=== PATIENT | female | born 1950 | race Caucasian/White ===

== ENCOUNTER 2017-02-25 17:10 | Emergency (ER) | payer SELFPAY ==
[2017-02-25 17:21] VITALS: BP 121/68; PULSE 67; TEMP 98.6; BMI 24.0
[2017-02-25] MEDS ORDERED: LIDOCAINE HCL 1%, 10 MG/ML (20ML VIAL) ONE (18:56)
--- NOTE | 2017-02-25 19:13 | PDOC ---
History of Present Illness - General Chief Complaint: Toothache Stated Complaint: PAIN Time Seen by Provider: 02/25/17 18:25 - History of Present Illness Initial Comments: 02/25/17 19:09 CHIEF COMPLAINT: tooth pain HISTORY OF PRESENT ILLNESS: 66 yo F with hx of HTN and HLD presents to [facility] with L lower tooth pain x 3 days. Patient denies any fever, chills, vomiting, diarrhea. PAST MEDICAL HISTORY: Denies past medical history FAMILY HISTORY: Denies SOCIAL HISTORY: Denies tobacco, alcohol, illicit drug use. SURGICAL HISTORY: Denies ALLERGIES: No known drug allergies REVIEW OF SYSTEMS General/Constitutional: Denies fever or chills. HEENT: L lower tooth pain. Cardiovascular: Denies chest pain or shortness of breath. Respiratory: Denies cough, wheezing, or hemoptysis. Gastrointestinal: Denies nausea, vomiting, diarrhea. Musculoskeletal: Denies joint or muscle swelling or pain. Denies neck or back pain. Skin and breasts: Denies rash. PHYSICAL EXAM General Appearance: Well-appearing, appropriately dressed. No apparent distress , no intoxication. HEENT: Dental caries to L lower molars, no abscess appreciated. EOMI, PERRLA, normal ENT inspection, normal voice, TMs normal, pharynx normal. No conjunctival pallor. No photophobia, scleral icterus. Neck: Supple. Trachea midline. No tenderness, rigidity, carotid bruit, stridor , lymphadenopathy, or thyromegaly. Respiratory/Chest: Lungs CTAB. No shortness of breath, chest tenderness, respiratory distress, accessory muscle use. No crackles, rales, rhonchi, stridor , wheezing, dullness Cardiovascular: RRR. S1, S2. No JVD, murmur, bradycardia, tachycardia. Vascular Pulses: Dorsalis-Pedis (R): 2+, Dorsalis-Pedis (L): 2+ Gastrointestinal/Abdominal: Normal bowel sounds. Abdomen soft, non-distended. No tenderness or rebound tenderness. No organomegaly, pulsatile mass, guarding , hernia, hepatomegaly, splenomegaly. Lymphatic: No adenopathy, tenderness. Musculoskeletal/Extremities: Normal inspection. FROM of all extremities, normal capillary refill. Pelvis Stable. No CVA tenderness. No tenderness to extremities, pedal edema, swelling, erythema or deformity. Integumentary: Appropriate color, dry, warm. No cyanosis, erythema, jaundice or rash Neurologic: judge II-XII intact. Fully oriented, alert. Appropriate mood/affect. Motor strength 5/5. No appreciable EOM palsy, facial droop or sensory deficit. Past History - Past Medical History Allergies/Adverse Reactions: Allergies Allergy/AdvReac Type Severity Reaction Status Date / Time No Known Allergies Allergy Verified 02/25/17 17:21 Home Medications: Ambulatory Orders Clindamycin [Cleocin -] 300 mg PO Q6HPO #28 capsule 02/25/17 COPD: No HTN: Yes Hypercholesterolemia: Yes - Suicide/Smoking/Psychosocial Hx Smoking History: Never smoked Hx Alcohol Use: No Drug/Substance Use Hx: No Substance Use Type: None *Physical Exam - Vital Signs Last Vital Signs Temp Pulse Resp BP Pulse Ox 98.6 F 67 20 121/68 98 02/25/17 17:19 02/25/17 17:19 02/25/17 17:19 02/25/17 17:19 02/25/17 17:19 Medical Decision Making - Medical Decision Making 02/25/17 19:10 66 yo F with hx of HTN and HLD presents [facility] with L lower tooth pain x 3 days. Dental block performed, patient expressed immediate relief. Clindamycin rx sent to pharm. Advised patient to take medication as prescribed and follow up with dentist by the end of the week. Advised patient of signs and symptoms for return to ED. Patient verbalized understanding and agrees to plan. *DC/Admit/Observation/Transfer Diagnosis at time of Disposition: Pain, dental - Discharge Dispostion Disposition: HOME Condition at time of disposition: Stable Admit: No - Prescriptions Prescriptions: Clindamycin [Cleocin -] 300 mg PO Q6HPO #28 capsule - Referrals Referrals: Jeannette Malcolm MD [Primary Care Provider] - - Patient Instructions Printed Discharge Instructions: DI for Dental Pain Additional Instructions: Please take medications as prescribed and follow up with your dentist as soon as possible. of any fever, chills, vomiting, diarrhea, or any new or worsening symptoms, please return to the ER. - Post Discharge Activity
== END 2017-02-25 19:13 | disposition home or self-care (01) ==
LOC: JERFT 17:10
DX: K08.89 Other specified disorders of teeth and supporting structures (principal); K02.9 Dental caries, unspecified
CPT/HCPCS: 99281-25

== ENCOUNTER 2019-03-24 11:20 | Emergency (ER) | payer OTHER ==
[2019-03-24 11:48] VITALS: BP 148/77; PULSE 80; TEMP 98.9; BMI 24.2
--- NOTE | 2019-03-24 11:58 | PDOC ---
History of Present Illness - General Chief Complaint: Urinary Problem Stated Complaint: UTI Time Seen by Provider: 03/24/19 11:58 - History of Present Illness Initial Comments: 03/24/19 13:00 Pt presents to the ED complaining of a one week history of generalized weakness , dysuria and flank pain. Patient has a history of DM, HTN and frequent UTIs in the past. Has been having dysuria for three weeks, which she treated with OTC pyridium until she began to feel increasingly weak. She presented to her PCP office last week, where she was diagnosed with UTI and treated with cipro. She presents today because she still has dysuria and feels weak and nauseated. Past History - Past Medical History Allergies/Adverse Reactions: Allergies Allergy/AdvReac Type Severity Reaction Status Date / Time No Known Allergies Allergy Verified 03/24/19 11:41 Home Medications: Ambulatory Orders Amlodipine Besylate 10 mg PO DAILY 03/24/19 Ciprofloxacin HCl [Cipro] 500 mg PO BID 03/24/19 Glimepiride 1 mg PO DAILY 03/24/19 Lisinopril/Hydrochlorothiazide [Lisinopril-Hctz 10-12.5 mg Tab] 1 each PO DAILY 03/24/19 Metformin HCl [Glucophage] 500 mg PO DAILY 03/24/19 Phenazopyridine HCl [Pyridium] 100 mg PO TID 03/24/19 Simvastatin 40 mg PO DAILY 03/24/19 COPD: No Diabetes: Yes (TYPE II) HTN: Yes Hypercholesterolemia: Yes - Psycho Social/Smoking Cessation Hx Smoking History: Never smoked Hx Alcohol Use: No Drug/Substance Use Hx: No Substance Use Type: None *Physical Exam - Vital Signs Last Vital Signs Temp Pulse Resp BP Pulse Ox 98.9 F 80 16 148/77 96 03/24/19 11:34 03/24/19 11:34 03/24/19 11:34 03/24/19 11:34 03/24/19 11:34 ED Treatment Course - LABORATORY CBC & Chemistry Diagram: 03/24/19 12:48 03/24/19 12:48 Discharge - Discharge Information Problems reviewed: Yes Clinical Impression/Diagnosis: Malaise and fatigue Back pain Qualifiers: Back pain location: back pain in unspecified location Chronicity: acute Back pain laterality: right Qualified Code(s): M54.9 - Dorsalgia, unspecified Condition: Good Disposition: HOME - Admission No - Follow up/Referral Referrals: Jeannette Malcolm MD [Primary Care Provider] - - Patient Discharge Instructions Patient Printed Discharge Instructions: DI for Thoracic Back Pain, DI for Fatigue Additional Instructions: You cane to the ED because you were having pain in your back and feeling weak. We did urine tests, blood tests, and a cat scan that showed nothing concerning. You must call your doctor to make a follow up appointment. Return to the ED for fever, nausea and vomiting, severe back, flank, abdominal or chest pain, other new or worsening symptoms. - Post Discharge Activity
[2019-03-24] MEDS ORDERED: SODIUM CHLORIDE 0.9% 500 ML INFUS.BAG IV ONE (12:10)
[2019-03-24 13:15] LABS: BASO % 0.6 % (0-2.0); EOS % 1.4 % (0-4.5); HEMOGLOBIN 14.5 GM/dl (10.7-15.3); LYMPH % 18.5 % (8-40); MCHC 33.7 g/dl (32.0-36.0); MEAN CELL VOLUME 86.2 fl (80-96); MEAN PLT VOLUME 9.9 fl (7.5-11.1); NEUT % 70.5 % (42.8-82.8); PLATELET COUNT 198 K/MM3 (134-434); RBC 4.99 M/mm3 (3.60-5.2); RDW 10.9 % (11.6-15.6); WHITE BLOOD COUNT 6.6 K/mm3 (4.0-10.8)
[2019-03-24 13:18] LABS: ALBUMIN 4.1 g/dl (3.4-5.0); BILIRUBIN,TOTAL 1.2 mg/dl (0.2-1); CALCIUM 9.1 mg/dl (8.5-10); CREATININE 0.8 mg/dl (0.55-1.3); POTASSIUM 3.1 mmol/L (3.5-5.1); TOT PROT 6.9 g/dl (6.4-8.2)
[2019-03-24 13:22] LABS: EPITHELIAL CELLS RARE /hpf
[2019-03-24] MEDS ORDERED: ACETAMINOPHEN 1000 MG/100 ML VIAL (NON FORMULARY) IVPB ONE (15:16)
[2019-03-24] MEDS ORDERED: ACETAMINOPHEN INJECTION 100 ML IVPB ONE (15:19)
== END 2019-03-24 16:07 | disposition home or self-care (01) ==
LOC: FER 11:20
PROC: 3E033NZ Introduction of Analgesics, Hypnotics, Sedatives into Peripheral Vein, Percutaneous Approach (ICD-10-PCS; principal; 2019-03-24)
PROC: 3E0337Z Introduction of Electrolytic and Water Balance Substance into Peripheral Vein, Percutaneous Approach (ICD-10-PCS; 2019-03-24)
DX: M54.9 Dorsalgia, unspecified (principal); I10 Essential (primary) hypertension; E78.00 Pure hypercholesterolemia, unspecified; E11.9 Type 2 diabetes mellitus without complications
CPT/HCPCS: 36415; 74176-TC; 80053; 81003; 81015; 83605; 85025; 87086; 99283-25; J0131